=== PATIENT | female | born 1975 | race Caucasian/White ===

== ENCOUNTER 2019-10-07 10:42 | Emergency (ER) | payer OTHER ==
[2019-10-07] MEDS ORDERED: Adacel (T-DAP) 0.5 ML SYRINGE ONE (10:59)
[2019-10-07 11:18] LABS: #Basophils 0.1 thou/uL (0.0-0.2); #Eosinphils 0.1 thou/uL (0.0-0.7); #Lymphocytes 2.6 thou/uL (1.20-3.40); #Monocytes 0.6 thou/uL (0.11-0.59); #Neutrophils 4.3 thou/uL (1.40-6.50); %Basophils 0.9 % (0.0-1.0); %Eosinophils 1.2 % (0.0-10.0); %Lymphocytes 34.1 % (21.0-51.0); %Monocytes 8.1 % (0.0-10.0); %Neutrophils 55.7 % (42.0-75.0); Hemoglobin 14.1 g/dL (12.0-16.0); Mean Corpuscular HGB CONC 34.3 g/dL (32.0-36.0); Mean Corpuscular Hemoglobin 31.8 pg (27.0-31.0); Mean Corpuscular Volume 92.8 fL (78.0-98.0); Mean Platelet Volume 8.3 fL (7.4-10.4); Platelet Count 261 thou/uL (130-400); RBC Distribution Width 11.6 % (11.5-14.5); Red Blood Cell (RBC) Count 4.42 mill/uL (4.20-5.40); White Blood Cell (WBC) Count 7.6 thou/uL (4.8-10.8)
[2019-10-07 11:28] LABS: BHCG - Serum Negative (NEGATIVE); Pregs Control Background? CLEAR/WHITE (CLR/WHITE); Pregs Control Bar Appear? YES (CONTROL BAR)
[2019-10-07 11:29] LABS: INR-International Normal Ratio 0.8; PTT 29.9 SEC (22.9-36.1); Prothrombin Time 11.2 SEC (12.0-14.7)
[2019-10-07 11:47] LABS: ALT (SGPT) 31 U/L (8-55); AST (SGOT) 20 U/L (5-34); Albumin 4.1 g/dL (3.5-5.0); Alkaline Phosphatase 67 U/L (40-110); Anion Gap 13 mmol/L (10-20); BUN (Urea Nitrogen) 11 mg/dL (7.0-18.7); Bilirubin, Total 0.2 mg/dL (0.2-1.2); Calc. Creatinine Clearance 0 mL/min (70-130); Calcium 9.1 mg/dL (7.8-10.44); Carbon Dioxide 25 mmol/L (22-29); Chloride 105 mmol/L (98-107); Estimated GFR-MDRD 79; Globulin 3.2 g/dL (2.4-3.5); Glucose 99 mg/dL (70-105); Potassium 3.7 mmol/L (3.5-5.1); Protein, Total 7.3 g/dL (6.0-8.3); Sodium 139 mmol/L (136-145)
[2019-10-07] MEDS ORDERED: Ondansetron PF 4 MG/2 ML Vial ONE (11:48)
[2019-10-07] MEDS ORDERED: Morphine 4 MG/ML VIAL ONE ×2 (11:48→12:56)
[2019-10-07] MEDS ORDERED: Ketorolac Tromethamine 30 MG/ML VIAL ONE (12:56)
== END 2019-10-07 13:36 | disposition home or self-care (01) ==
LOC: ERS 10:42
DX: T63.061A Toxic effect of venom of other North and South American snake, accidental (unintentional), initial encounter (principal); F41.9 Anxiety disorder, unspecified; Z79.899 Other long term (current) drug therapy
CPT/HCPCS: 36415; 80053; 83605; 84703; 85025; 85610; 85730; 86850; 86900; 86901; 90471; 90715; 93005; 96361; 96374; 96375; 96376; J1885; J2270; J2405

== ENCOUNTER 2021-08-18 09:15 | Outpatient (CLI) | payer BC | END 2021-08-18 09:16 | disposition home or self-care (01) | LOC: BICMRI 09:15 | PROVIDERS: ATTEND Nurse Practitioner Family | DX: M25.511 Pain in right shoulder (principal) ==